=== PATIENT | female | born 1995 | race Two or more races ===

== ENCOUNTER 2022-04-28 06:00 | Inpatient (IN) | payer OTHER ==
[~2022-04-28] VITALS: Ht 170.2 cm; Wt 90.7 kg
[2022-04-28] MEDS ORDERED: PRENATAL + DHA1 EAC1 PO (07:55)
== END 2022-04-30 17:24 | disposition home or self-care (01) | DRG 807 ==
LOC: LDR 06:00 → OB/GYN 19:50
PROVIDERS: ADMIT Obstetrics & Gynecology; ATTEND Obstetrics & Gynecology
PROC: 10E0XZZ Delivery of Products of Conception, External Approach (ICD-10-PCS; principal; 2022-04-28)
PROC: 0KQM0ZZ Repair Perineum Muscle, Open Approach (ICD-10-PCS; 2022-04-28)
PROC: 4A1HXCZ Monitoring of Products of Conception, Cardiac Rate, External Approach (ICD-10-PCS; 2022-04-28)
DX: O70.1 Second degree perineal laceration during delivery (principal); Z37.0 Single live birth; Z3A.36 36 weeks gestation of pregnancy; Z20.822 Contact with and (suspected) exposure to COVID-19